=== PATIENT | male | born 1995 | race Caucasian/White ===

== ENCOUNTER → 2020-05-30 | Outpatient (CLI) | payer OTHER ==
--- NOTE | 2020-05-30 15:04 | Diagnostic Imaging Report ---
PROCEDURE: MRI lumbar spine. TECHNIQUE: Multiplanar, multisequence MRI of the lumbar spine was performed without contrast. INDICATION: Increasing back pain. COMPARISON: No prior studies are available for comparison. FINDINGS: There is some straightening of the normal lumbar lordotic curvature. Minimal retrolisthesis at L5 on S1 is noted. The vertebral body heights are maintained. The marrow signal intensity is normal. No geographic marrow lesion or acute compression fracture is identified. There is degenerative disc disease at L5-S1 with mild disc space narrowing as well as desiccation. The conus is unremarkable at the L1 level. T12-L1: Central canal and neural foramina are widely patent. L1-L2: Central canal and neural foramina are widely patent. L2-L3: Central canal and neural foramina are widely patent. L3-L4: Minimal ligamentous thickening is present with central canal and neural foramina are widely patent. L4-L5: Minimal annular bulging is noted which does indent the ventral thecal sac. There is some ligamentous thickening present. Hozb-[id number]-wfnoffmv narrowing of the central canal is noted. There also appears to be some narrowing of the lateral recesses bilaterally. Neural foramina are patent bilaterally. L5-S1: There is a prominent wide-based midline/right paramidline and right posterolateral disc bulge. This indents the ventral thecal sac. This does produce significant narrowing of the right lateral recess. There is milder left lateral recess narrowing. Neural foramina are patent. Ligamentous thickening is present. Paraspinous tissues are unremarkable. IMPRESSION: 1. Broad-based disc bulging resulting in [id number]-[id number] central canal narrowing at L4-L5 as well as bilateral lateral recess stenosis. 2. Wide-based disc bulge at L5-S1 resulting in significant right lateral recess stenosis. There is also opay-[id number]-[id number] central canal stenosis at this level. Dictated by: Dictated on workstation # [id number]
== END ==
LOC: RAD 14:00
PROVIDERS: ATTEND Physician Assistant
DX: M51.16 Intervertebral disc disorders with radiculopathy, lumbar region (principal); M51.27 Other intervertebral disc displacement, lumbosacral region; M48.061 Spinal stenosis, lumbar region without neurogenic claudication; M48.07 Spinal stenosis, lumbosacral region
CPT/HCPCS: 72148

== ENCOUNTER 2020-10-31 09:42 | Outpatient (RCR) | payer OTHER | END 2020-11-05 08:39 | disposition home or self-care (01) | PROVIDERS: ATTEND Neurological Surgery | DX: M54.16 Radiculopathy, lumbar region (principal) ==